=== PATIENT | female | born 1930 | race Two or more races ===

== ENCOUNTER 2018-08-10 09:30 | Emergency (ER) | payer OTHER, MEDICAID ==
[2018-08-10] MEDS ORDERED: ACETAMINOPHEN 500 MG TAB PO ONE (09:57)
--- NOTE | 2018-08-10 10:13 | EDPHY ---
H & P Time Seen by Provider: 08/10/18 09:44 HPI/ROS: CHIEF COMPLAINT: Left hip pain HISTORY OF PRESENT ILLNESS: This is an 88-year-old female, Bosnian speaking, who presents to the emergency department with complaints of left hip pain. She is here with her family members who are also her caregivers. They report that last night, when she was taking off her socks, she suddenly cried out and then told them that she was fine. She went to bed. However this morning, she complains of pain in her left hip area. Denies any back pain. Denies a fall. Denies any fevers or chills, nausea/ vomiting, shortness of breath, chest pain. Denies any redness over the area. Denies a headache. Denies urinary complaints. REVIEW OF SYSTEMS: A comprehensive 10 system review of systems was reviewed and is otherwise negative aside from elements mentioned in the history of present illness and medical decision making. PAST MEDICAL HISTORY: Atrial fibrillation, stroke, hypertension, on Coumadin. SOCIAL HISTORY: Here with family members. Bosnian speaking only and very hard of hearing. Patient was unable to hear the odd job worker via [employer] interpretation system. She requested that her family translating for her. VITAL SIGNS Reviewed by me. GENERAL: Well-developed, well-nourished, short of breath or moving about the bed. HEENT: Atraumatic. Eyes: No icterus, left eye with corneal clouding and scarring. Patient and family states this is from an old infection. Mouth: Slightly dry mucous membranes. No erythema or lesions. Neck: supple with no adenopathy. LUNGS: Clear to auscultation bilaterally, no wheezes, rhonchi or rales. CARDIAC: Slightly irregular, no rubs murmurs or gallops. ABDOMEN: Soft, nontender, nondistended, bowel sounds normal. BACK: No CVA tenderness. EXTREMITIES: Left hip: Patient is tender over the lateral left hip, at the greater trochanter area. She indicates that this is the area of pain. There is an old well-healed scar. No erythema. No fluctuance. No warmth. No rash. Pain with flexion and internal or external rotation. No edema. Range of motion is normal in the right hip. Normal range of motion, no deformities, no trauma of the knees or ankles bilaterally. Patient does have an ecchymosis lateral to her left tibia. NEURO: Alert and oriented, grossly nonfocal. SKIN: Warm and dry, no rash. PSYCHIATRIC: Normal mentation, no agitation. Constitutional: Initial Vital Signs Temperature (C) 37.0 C 08/10/18 09:50 Heart Rate 100 08/10/18 09:50 Respiratory Rate 20 08/10/18 09:50 Blood Pressure 134/81 H 08/10/18 09:50 O2 Sat (%) 98 08/10/18 09:50 O2 Delivery Mode Room Air Allergies/Adverse Reactions: No Known Allergies Allergy (Unverified 08/10/18 09:39) Home Medications: Medication Instructions Recorded Aspirin 81mg 05/25/11 Atorvastatin Calcium 05/25/11 Furosemide 05/25/11 INSULIN REGULAR, HUMAN 05/25/11 VITAMIN D 05/25/11 Chlorthalidone 25 mg (*) 08/10/18 Losartan Potassium 08/10/18 Sensipar 08/10/18 Warfarin Sodium 2 mg 08/10/18 Medical Decision Making - Diagnostics EKG Interpretation: 12-LEAD EKG: Please see the full report in [employer] [facility]. My interpretation: Sinus tachycardia, Imaging Results: Impression:Soft tissue hematoma lateral to the intact greater trochanter. Otherwise negative. A message was left for Dr. Byrd at 1:43 PM. Dictated By: Fermin Bell MD Left hip, left tib-fib, and pelvis x-rays were all negative for acute fractures. Imaging: Discussed imaging studies w/ manager call center Radiologist, I viewed and interpreted images myself ED Course/Re-evaluation: Patient had x-ray of the left hip ordered after my initial evaluation. X-ray demonstrates no obvious signs of acute injury; there is an area of lucency thought to be a nutrient vessel. Femoral end of the shantel is not visualized. Discussed situation with the patient and her family members. She normally is up and ambulatory without any assistance at home. Family states that she could walk today but with significant discomfort and needing help. Plan at this point is to admit the patient for further evaluation of her abrupt onset of left hip pain and inability to ambulate. Given the metal in the patient's hip, bone scan may be indicated in order to evaluate for any occult fractures. Patient family would prefer to be admitted to [facility]. [facility] was contacted and patient was accepted to room [facility] by Dr. Polanco. EKG demonstrates sinus rhythm with PVCs. Labs: Troponin 0.03. INR greater than 9. As this is a point of care test, confirmatory test was ordered at the [facility]. CBC: White count 2.9. Patient underwent CT scan of the hip in order to evaluate for potential hematoma. Patient does have a soft tissue hematoma and given her INR of 9, decision was made to admit the patient to the hospital. Family would prefer to transfer the patient via POV. Patient has received Tylenol only at this point. IV pain meds were withheld until she is at [facility]. Differential Diagnosis: Differential diagnoses for the patient's symptom complex was considered including but not limited to occult fracture, strain, hematoma, joint infection , sprain. Consult/Admit Bed Type: Dr Polanco, [facility] Surg - Data Points Medications Given: Discontinued Medications Acetaminophen (Tylenol) 1,000 mg PO EDNOW ONE Stop: 08/10/18 09:58 Last Admin: 08/10/18 10:10 Dose: 1,000 mg Fentanyl (Sublimaze) 50 mcg IVP EDNOW ONE Stop: 08/10/18 10:44 Last Admin: 08/10/18 11:57 Dose: Not Given Point of Care Test Results: CBC CBC Collection Date 08/10/18 CBC Collection Time 12:00 WBC 8.01 RBC 3.26 HGB 10.2 HCT 31.0 PLT 166 Neut # 5.23 Neut 65.2 LYMPH # 2.01 LYMPH 25.1 MCV 95.1 Chemistry 08/10/18 08/10/18 12:19 12:08 POC Sodium 144 mEq/L mEq/L (135-145) POC Potassium 3.7 mEq/L mEq/L (3.3-5.0) POC Chloride 111.0 mEq/L H mEq/L (97-110) POC Total CO2 25 mEq/L mEq/L (22-31) POC BUN 73 mg/dL H mg/dL (7-23) POC Creatinine 1.8 mg/dL H mg/dL (0.6-1.0) POC Glucose 79 mg/dL mg/dL (70-100) POC Calcium 8.6 mg/dL mg/dL (8.5-10.4) POC Total Bilirubin 0.6 mg/dL mg/dL (0.1-1.4) POC AST 36 IU/L IU/L (14-46) POC ALT 29 IU/L IU/L (9-52) POC Alk Phosphatase 70 IU/L IU/L (38-126) POC Troponin I 0.03 ng/mL ng/mL (0.00-0.08) POC Total Protein 5.8 g/dL L g/dL (6.3-8.2) POC Albumin 2.9 g/dL L g/dL (3.5-5.0) Departure - Departure Disposition: Acute [facility], [facility] Not [facility] Clinical Impression: Left hip pain, Supratherapeutic INR Hip hematoma, left Qualifiers: Encounter type: initial encounter Qualified Code(s): S70.02XA - Contusion of left hip, initial encounter Condition: Fair Referrals: Good Lafleur MD [Primary Care Provider] - As per Instructions
[2018-08-10] MEDS ORDERED: fentaNYL 100 MCG/2 ML INJ IVP ONE (10:43)
[2018-08-10 14:23] VITALS: BP 111/64
[2018-08-10 15:14] LABS: INR 7.6 (0.83-1.16)
--- NOTE | 2018-08-15 15:25 | CPEKG ---
Test Reason : OPEN Blood Pressure : / mmHG Vent. Rate : 092 BPM Atrial Rate : 101 BPM P-R Int : 161 ms QRS Dur : 069 ms QT Int : 360 ms P-R-T Axes : 053 030 047 degrees QTc Int : 446 ms Sinus tachycardia Ventricular premature complex Confirmed by Lana Byrd ([id number]) on 08/15/2018 3:24:18 PM Referred By: Lana Byrd Confirmed By:Lana Byrd
== END 2018-08-10 14:17 | disposition short-term general hospital (02) ==
LOC: CED 09:30
DX: M25.552 Pain in left hip (principal); M79.81 Nontraumatic hematoma of soft tissue; I48.91 Unspecified atrial fibrillation; I10 Essential (primary) hypertension; Z79.01 Long term (current) use of anticoagulants; Z86.73 Personal history of transient ischemic attack (TIA), and cerebral infarction without residual deficits
CPT/HCPCS: 72192; 73502; 73551; 73590; 96374; 99285; J3010; 80053-ER; 84484-ER